=== PATIENT | female | born 1995 | race Caucasian/White ===

== ENCOUNTER 2016-09-03 11:07 | Inpatient (IN) | payer OTHER ==
[~2016-09-03] VITALS: Ht 167.6 cm; Wt 54.4 kg
[2016-09-03] MEDS ORDERED: GABA-534 PO (16:39)
[2016-09-03] MEDS ORDERED: ESCI20TA PO (16:39)
[2016-09-03] MEDS ORDERED: CEPH500C2 PO (16:39)
[2016-09-03] MEDS ORDERED: QUET50TA PO (16:39)
[2016-09-03] MEDS ORDERED: CLON0.5T23 PO (16:39)
[2016-09-03] MEDS ORDERED: NORG1TAB69 PO (16:39)
[2016-09-03] MEDS ORDERED: BUPR-51 PO (16:39)
[2016-09-03] MEDS ORDERED: LACT1TAB12 PO (16:39)
[2016-09-03 16:57] LABS: *URINE HCG, QUAL NEGATIVE (NEGATIVE)
[2016-09-03 17:15] LABS: *AMPHETAMINE, URINE POSITIVE (NEGATIVE); *BARBITURATE, URINE NEGATIVE (NEGATIVE); *CANNABINOID, URINE POSITIVE (NEGATIVE); *COCCAINE, URINE NEGATIVE (NEGATIVE); *OPIATE, URINE POSITIVE (NEGATIVE); *PHENCYCLIDINE SCREEN,URINE NEGATIVE (NEGATIVE)
[2016-09-03 17:20] VITALS: BP 126/59
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
--- NOTE | 2016-09-03 18:56 | NUR ---
CALLED [place] [employer]. WAS PUT ON HOLD FOR [address] WOOD STATES HE WILL CALL AND REPORT IT. WILL ALSO ENDORSE TO TAVERN KEEPER.
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
[2016-09-03] MEDS ORDERED: ONDANSETRON 4 MG/2 ML VIAL IM PRN (19:45)
[2016-09-03] MEDS ORDERED: LORAZEPAM 2 MG/1 ML VIAL IM PRN (19:45)
[2016-09-03] MEDS ORDERED: ACETAMINOPHEN 325 MG TABLET PO PRN (19:45)
[2016-09-03] MEDS ORDERED: MAG HYDROX/AL HYDROX/SIMETH 30 ML LIQUID UDC PO PRN (19:45)
[2016-09-03] MEDS ORDERED: ONDANSETRON ODT 4 MG TAB.RAPDIS SL PRN (19:45)
[2016-09-03] MEDS ORDERED: diphenhydrAMINE 50 MG CAPSULE PO PRN (19:45)
[2016-09-03] MEDS ORDERED: IBUPROFEN 600 MG TABLET PO PRN (19:45)
[2016-09-03] MEDS ORDERED: MIRALAX 17 GM POWD.PACK PO PRN (19:45)
[2016-09-03] MEDS ORDERED: METHOCARBAMOL 750 MG TABLET PO PRN (19:45)
[2016-09-03] MEDS ORDERED: HYDROXYZINE PAMOATE 25 MG CAPSULE PO PRN (19:45)
[2016-09-03] MEDS ORDERED: CLONIDINE HCL 0.1 MG TABLET PO PRN (19:45)
[2016-09-03] MEDS ORDERED: LORAZEPAM 1 MG TABLET PO PRN ×2 (19:45)
[2016-09-03] MEDS ORDERED: BUPRENORPHINE HCL 2 MG TAB.SUBL SL PRN (19:45)
[2016-09-03] MEDS ORDERED: LOPERAMIDE HCL 2 MG CAPSULE PO PRN ×2 (19:45)
[2016-09-03] MEDS ORDERED: DICYCLOMINE HCL 20 MG TABLET PO PRN (19:45)
[2016-09-03] MEDS ORDERED: MAGNESIUM HYDROXIDE 30 ML LIQUID UDC PO PRN (19:45)
--- NOTE | 2016-09-03 19:55 | NUR ---
AMA LEAVE: PT REFUSES CARE AND REQUESTS TO LEAVE AMA. ALL BELONGINGS AND NON-CONTROLLED MEDICATIONS RETURNED TO PT. AMA PAPERWORK SIGNED AND APPROPRIATE INFO ON OUTSIDE RESOURCES PROVIDED TO PT. PT ESCORTED OFF UNIT BY PATIENT ADVOCATENATALIE. CLIENT OFF UNIT AT 20:00. Addendum: 09/03/16 at 2254 by BERNICE BOONE RN PT STATES THAT SHE WANTS TO LEAVE BECAUSE SHE IS ANGRY THAT SHE WILL NOT RECEIVE KLONOPIN; PT DENIES HAVING A SUBSTANCE ABUSE PROBLEM AND THAT SHE INTENDS TO USE WHEN SHE LEAVES. PT EDUCATED ON RISKS AND CONSEQUENCES OF LEAVING AMA, PT VERBALIZED UNDERSTANDING BUT STILL REQUESTED TO LEAVE AMA. DR WOOD, NATALIE, JOAQUIN, AND OTHER STAFF MEMBERS SPOKE TO PT WITHOUT ANY SUCCESS. VS WNL, PT DENIES SI/HI, DR WOOD AWARE.
[2016-09-04] MEDS ORDERED: TUBERCULIN,PURIF.PROT.DERIV. 5 TU/0.1 ML TEST ID ONE (09:00)
[2016-09-04] MEDS ORDERED: GABAPENTIN 300 MG CAPSULE PO SCH (09:00)
[2016-09-04] MEDS ORDERED: MULTIVITAMINS,THERAPEUTIC TABLET PO SCH (09:00)
[2016-09-04] MEDS ORDERED: PATIENT MAY USE OWN MED- MD OK PO SCH (09:00)
== END 2016-09-03 21:51 | disposition left against medical advice (07) | DRG 894 ==
LOC: SRC 14:40
PROVIDERS: ADMIT Internal Medicine; ATTEND Internal Medicine
PROC: HZ2ZZZZ Detoxification Services for Substance Abuse Treatment (ICD-10-PCS; principal; 2016-09-03)
DX: F11.23 Opioid dependence with withdrawal (principal); T76.21XA Adult sexual abuse, suspected, initial encounter; F15.20 Other stimulant dependence, uncomplicated; F13.230 Sedative, hypnotic or anxiolytic dependence with withdrawal, uncomplicated; Z59.0 Homelessness; F31.9 Bipolar disorder, unspecified; F41.9 Anxiety disorder, unspecified; F17.210 Nicotine dependence, cigarettes, uncomplicated
CPT/HCPCS: 80307; 80324; 80346; 80349; 80361; 84703; A4663

== ENCOUNTER 2016-10-18 08:25 | Inpatient (IN) | payer OTHER ==
[~2016-10-18] VITALS: Ht 167.6 cm; Wt 49.0 kg
[~2016-10-18 08:25] MED LIST: GABA-534 PO; NORG1TAB69 PO
--- NOTE | 2016-10-19 01:00 | NUR ---
PRE-ADMISSION Pre-assessment performed in the admission office of [facility]. Pt is A&O x4 and ambulatory. She denies food or drug allergies. She does not appear intoxicated and answers all questions appropriately. Vital signs are B/P 114/80, HR 107, RR 16, O2 sat 100%, T 97.6, pain 0/10. Pt reports that she is here to be treated for heroin and methamphetamine dependence. [facility].
[2016-10-19] MEDS ORDERED: DIAZEPAM 10 MG TABLET PO PRN ×2 (02:00)
[2016-10-19] MEDS ORDERED: LORAZEPAM 2 MG/1 ML VIAL IM PRN (02:00)
[2016-10-19] MEDS ORDERED: DIAZEPAM 5 MG TABLET PO PRN (02:00)
[2016-10-19] MEDS ORDERED: LOPERAMIDE HCL 2 MG CAPSULE PO PRN ×2 (02:00)
[2016-10-19] MEDS ORDERED: METHOCARBAMOL 750 MG TABLET PO PRN (02:00)
[2016-10-19] MEDS ORDERED: ONDANSETRON ODT 4 MG TAB.RAPDIS SL PRN (02:00)
[2016-10-19] MEDS ORDERED: diphenhydrAMINE 50 MG CAPSULE PO PRN (02:00)
[2016-10-19] MEDS ORDERED: BUPRENORPHINE HCL 2 MG TAB.SUBL SL PRN (02:00)
[2016-10-19] MEDS ORDERED: ACETAMINOPHEN 325 MG TABLET PO PRN (02:00)
[2016-10-19] MEDS ORDERED: DICYCLOMINE HCL 20 MG TABLET PO PRN (02:00)
[2016-10-19] MEDS ORDERED: MAGNESIUM HYDROXIDE 30 ML LIQUID UDC PO PRN (02:00)
[2016-10-19] MEDS ORDERED: MAG HYDROX/AL HYDROX/SIMETH 30 ML LIQUID UDC PO PRN (02:00)
[2016-10-19] MEDS ORDERED: CLONIDINE HCL 0.1 MG TABLET PO PRN (02:00)
[2016-10-19] MEDS ORDERED: PROMETHAZINE HCL 25 MG TABLET PO PRN (02:00)
[2016-10-19] MEDS ORDERED: IBUPROFEN 400 MG TABLET PO PRN (02:00)
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
[2016-10-19 02:24] LABS: *URINE HCG, QUAL NEGATIVE (NEGATIVE)
[2016-10-19 02:36] LABS: *AMPHETAMINE, URINE POSITIVE (NEGATIVE); *BARBITURATE, URINE NEGATIVE (NEGATIVE); *CANNABINOID, URINE NEGATIVE (NEGATIVE); *COCCAINE, URINE NEGATIVE (NEGATIVE); *OPIATE, URINE POSITIVE (NEGATIVE); *PHENCYCLIDINE SCREEN,URINE NEGATIVE (NEGATIVE)
[2016-10-19 04:00] VITALS: BP 101/45
--- NOTE | 2016-10-19 07:15 | NUR ---
END OF SHIFT Report provided to day shift nurse. Pt is lying in bed resting. She is a 20 yo female admitted to [facility] today at 0110 for bzd and opiate dependence. No PRN medications administered. Last COWS 1 and CIWA 2. She drank 500mL and slept for 4 hours.
[2016-10-19] MEDS ORDERED: SERT25TA PO (07:23)
[2016-10-19] MEDS ORDERED: ESCI10TA PO (07:23)
[2016-10-19] MEDS ORDERED: ALPR2TAB7 PO (07:23)
[2016-10-19 07:27] LABS: BASOPHILS # (AUTO) 0.1 K/uL (0.0-8.0); BASOPHILS % (AUTO) 3.2 % (0.0-2.0); EOSINOPHILS # (AUTO) 0.1 K/uL (0.0-0.7); EOSINOPHILS % (AUTO) 1.4 % (0.0-7.0); HEMOGLOBIN 13.1 G/DL (12.0-16.0); LYMPHOCYTES # (AUTO) 1.9 K/UL (0.8-4.8); LYMPHOCYTES % (AUTO) 46.6 % (20.5-74.5); MEAN CORPUSCULAR HEMOGLOBIN 28.9 UUG (27.0-31.0); MEAN CORPUSCULAR HGB CONC 34 g/dL (32.0-37.0); MEAN CORPUSCULAR VOLUME 86.2 FL (81.0-99.0); MONOCYTES # (AUTO) 0.4 K/UL (0.1-1.30); MONOCYTES % (AUTO) 8.8 % (0-11); NEUTROPHILS # (AUTO) 1.7 K/UL (1.8-8.9); PLATELET COUNT (AUTO) 223 K/UL (150-450); RED BLOOD CELL COUNT(AUTO) 4.52 MIL/UL (4.2-5.4); WHITE BLOOD COUNT (AUTO) 4.2 K/UL (4.0-11.2)
[2016-10-19 07:42] LABS: ETHANOL < 3 MG/DL (0-0)
[2016-10-19 07:51] LABS: ALANINE AMINOTRANSFERASE 22 U/L (14-59); ALBUMIN 3.2 g/dL (3.4-5.0); ALKALINE PHOSPHATASE 85 U/L (50-136); AMYLASE 33 U/L (25-115); ASPARTATE AMINOTRANSFERASE 23 U/L (15-37); BILIRUBIN,TOTAL 0.2 mg/dL (0.2-1.0); CALCIUM 8.6 mg/dL (8.5-10.1); CARBON DIOXIDE 29 mmol/L (21-32); CHLORIDE 104 mmol/L (98-107); CREATININE 0.7 mg/dL (0.6-1.3); GFR 107 mL/min (>60); GLUCOSE 92 mg/dL (74-106); LIPASE 72 U/L (73-393); POTASSIUM 4.2 mmol/L (3.5-5.1); SODIUM SERUM 138 mmol/L (136-145); UREA NITROGEN, BLOOD 10 mg/dL (7-18)
[2016-10-19 07:58] LABS: HIV-1 p24 ANTIGEN NON REACTIVE (NONREACTIVE); HIV-1/2 ANTIBODY NON REACTIVE (NONREACTIVE)
[2016-10-19 08:00] VITALS: BP 117/77
[2016-10-19 08:00] LABS: THYROID STIMULATING HORMONE 0.489 mIU/mL (0.358-3.740)
--- NOTE | 2016-10-19 08:00 | NUR ---
START OF SHIFT NOTE Received pt this Am AOx4. Patient presents very fatigued and tired. Patient states her "legs are hurting really bad." No PRNs given during the night per night nurse. No taper initiated yet. COWS 4 CIWA 5 at 0800. Encouraged increase in fluid intake to facilitate detox. Patient currently sleeping in bed with bed locked and in lowest position and call virk within reach. Will provide safe and supportive environment. Will continue to monitor.
[2016-10-19] MEDS: MULTIVITAMINS,THERAPEUTIC TABLET PO SCH (09:43)
--- NOTE | 2016-10-19 09:50 | NUR ---
PRN MEDICATIONS PRN Robaxin given for leg restlessness and leg pain 11/07. Will reassess.
--- NOTE | 2016-10-19 10:20 | NUR ---
PRN REASSESSMENT Patient sleeping calmly in bed with RR even and unlabored. Bed locked and in lowest position and call virk within reach. Will continue to monitor.
[2016-10-19 12:00] VITALS: BP 108/69
[2016-10-19] MEDS: HYDROXYZINE PAMOATE 25 MG CAPSULE PO PRN (12:20)
--- NOTE | 2016-10-19 12:21 | NUR ---
PRN MEDS PRN Vistaril given for c/o anxiety. Vital signs stable. Will reassess
--- NOTE | 2016-10-19 13:00 | NUR ---
PRN REASSESSMENT Patient states she feels a little less anxious. Patient eating lunch in bed calmly. Will monitor.
[2016-10-19] MEDS: LORAZEPAM 1 MG TABLET PO SCH ×3 (13:01→21:21)
[2016-10-19] MEDS: BUPRENORPHINE HCL 2 MG TAB.SUBL SL SCH ×3 (13:02→21:21)
[2016-10-19] MEDS: GABAPENTIN 300 MG CAPSULE PO SCH ×2 (14:09→21:21)
[2016-10-19 16:00] VITALS: BP 127/66
[2016-10-19] MEDS ORDERED: GABAPENTIN 300 MG CAPSULE PO SCH (17:00)
[2016-10-19] MEDS: ESCITALOPRAM OXALATE 10 MG TABLET PO SCH (17:35)
--- NOTE | 2016-10-19 18:38 | NUR ---
END OF SHIFT NOTE Patient started on 5 day Ativan/5 day Subutex taper and tolerating well. Patient presents with flat affect and congruent mood. She states they have made her "feel better already." Patient given PRN Robaxin and Vistaril with effectiveness. Patient slept most of shift. Last COWS 9 CIWA 7. Patient currently resting in room with bed locked and in lowest position and call virk within reach. All needs have been met. Safety measures in place. Will pass shift report to oncoming nurse.
[2016-10-19 20:00] VITALS: BP 116/72
--- NOTE | 2016-10-19 20:00 | NUR ---
START OF SHIFT Received report from day shift nurse. Pt attended a group meeting and returned to her room after. She is a 20 yo female admitted to [facility] on 10/19 for BZD and Opiate dependence. She has a PMH of PNA x4, bronchitis, UTIs, depression, anxiety, and bipolar. On admission she admitted to using Xanax 6mg per day, heroin 1 gram per day, and methamphetamine 0.5grams 3x/week. She started a 5 day Ativan and 5 day Subutex taper today. She presents with dilated pupils chills, and mild tremors. Tapers due tonight. Fall precautions in place. Bed is down with call light in reach. Addendum: 10/20/16 at 0139 by RANDI ARCINIEGA RN Pt is A&O x4 and ambulatory.
[2016-10-19 22:50] VITALS: BP 129/82
--- NOTE | 2016-10-19 23:18 | NUR ---
PRN Valium and Benadryl administration Pt reports that she is seeing objects in her room moving. She explains that a towel hanging, light switches, and the door handle appear to be moving. She is aware that the objects are not really moving. Pt has moderately dilated pupils. She is A&O x4. B/P 129/82 and HR 115. notified with orders received to administer PRN Valium. PRN Benadryl also administered. Addendum: 10/20/16 at 0507 by RANDI ARCINIEGA RN SKYLAR 8 and KIM 9.
[2016-10-20 00:30] VITALS: BP 123/72
--- NOTE | 2016-10-20 00:32 | NUR ---
PRN Valium and Benadryl reassessment PRN Valium and Benadryl somewhat effective. Hallucinations continue to be the same and have not gotten worse. B/P 123/72 and HR 100. COWS 6 and CIWA 9. Pt has not been able to sleep.
[2016-10-20] MEDS: HYDROXYZINE PAMOATE 25 MG CAPSULE PO PRN (01:45)
--- NOTE | 2016-10-20 01:45 | NUR ---
PRN Clonidine and Vistaril Pt reports that hallucinations have become slightly worse and she continues to feel anxious. She sees objects in her room moving more frequently. She has tremors and dilated pupils. COWS 6 and CIWA 11. Notified MD. Orders received to continue dosing per [facility] protocol. PRN Clonidine and Vistaril administered. Last B/P 123/72 and HR 100.
--- NOTE | 2016-10-20 02:45 | NUR ---
PRN Clonidine and Vistaril reassessment PRN Clonidine and Vistaril effective. Pt is lying comfortably in bed resting with eyes closed. Respirations even and unlabored. Unable to obtain COWS and CIWA as pt. is sleeping. Safety measures in place.
[2016-10-20 04:00] VITALS: BP 107/60
--- NOTE | 2016-10-20 04:00 | NUR ---
0400 COWS and CIWA deferred COWS and CIWA ordered Q4H while awake. Vitals obtained.
--- NOTE | 2016-10-20 07:15 | NUR ---
END OF SHIFT Report provided to day shift nurse. Pt is lying in bed resting. She is a 20 yo female admitted to [facility] on 10/19 for BZD and Opiate dependence. She has a PMH of PNA x4, bronchitis, UTIs, depression, anxiety, and bipolar. On admission she admitted to using Xanax 6mg per day, heroin 1 gram per day, and methamphetamine 0.5grams 3x/week. She started a 5 day Ativan and 5 day Subutex taper on 10/19. Pt experienced hallucinations last night and she was unable to sleep. It appeared as thought objects in her room were moving. She remained A&O x4. PRN Valium, Benadryl, Clonidine, and Vistaril administered. Pt was eventually able to fall asleep. Last COWS 6 and CIWA 11 before last medications administered. She drank 1446mL and slept for 3 hours. Fall precautions in place. Bed is down with call light in reach.
--- NOTE | 2016-10-20 07:50 | NUR ---
START OF SHIFT: RECEIVED PT ASLEEP IN BED. BED LOCKED AND LOW. RESPIRATIONS EVEN AND UNLABORED. CALL LARSON IN REACH. WILL CONTINUE TO MONITOR.
[2016-10-20 08:00] VITALS: BP 111/67
[2016-10-20 08:06] LABS: HEPATITIS B CORE AB, IgM Negative (Negative); HEPATITIS B SURFACE AG Negative (Negative)
[2016-10-20] MEDS: BUPRENORPHINE HCL 2 MG TAB.SUBL SL SCH ×3 (09:00→21:00)
[2016-10-20] MEDS ORDERED: TUBERCULIN,PURIF.PROT.DERIV. 5 TU/0.1 ML TEST ID ONE ×2 (09:00→15:00)
[2016-10-20] MEDS: GABAPENTIN 300 MG CAPSULE PO SCH ×3 (09:00→21:28)
[2016-10-20] MEDS: ESCITALOPRAM OXALATE 10 MG TABLET PO SCH (09:00)
[2016-10-20] MEDS: MULTIVITAMINS,THERAPEUTIC TABLET PO SCH (09:00)
[2016-10-20] MEDS: LORAZEPAM 1 MG TABLET PO SCH ×3 (09:00→21:28)
--- NOTE | 2016-10-20 10:05 | NUR ---
PT CONTINUES TO SLEEP AND WAS UP MOST OF THE NIGHT PER WELLNESS COACH REPORT. WILL ALLOW PT TO REST. 0900 MEDS HELD. COWS AND CIWA DEFERRED. VSS. WILL CONTINUE TO PROVIDE SAFE AND SUPPORTIVE ENVIRONMENT.
[2016-10-20 12:00] VITALS: BP 110/72
--- NOTE | 2016-10-20 14:35 | NUR ---
PT IS A/O X 4. SHE DENIES HALLUCINATIONS. SHE REPORTS SOME ANXIETY AND RESTLESSNESS. PPD PLANTED TO LFA. ATIVAN/SUBUTEX TAPER IN PROGRESS. SHE STATES SHE FEELS ANXIETY AND RESTLESSNESS. SHE IS REFUSING SUBUTEX AND STATES SHE FEELS MORE S/S OF W/D FROM THE BENZOS. EDUCATED PT ON POTENTIAL CONSEQUENCES OF REFUSING DETOX MEDS. PT EXPRESSED UNDERSTANDING. CIWA 5 COWS 2.ENCOURAGED INCREASED FLUIDS AND ENCOURAGED HER TO STAY AWAKE FOR THE REMAINDER OF THE DAY SO SHE CAN SLEEP TONIGHT. WILL CONTINUE TO MONITOR AND PROVIDE SUPPORT.
[2016-10-20 16:00] VITALS: BP 115/67
--- NOTE | 2016-10-20 18:39 | NUR ---
END OF SHIFT : PT CONTINUES ON ATIVAN /SUBUTEX TAPER. PT HAS BEEN SLEEPING FOR MOST OF SHIFT. SHE AWOKE FOR 1500 MEDS AND ONLY WANTED ATIVAN AND GABAPENTIN. SHE REFUSED SUBUTEX AND STATED SHE DID NOT FEEL LIKE SHE NEEDED THE SUBUTEX AND HER W/D S/S WERE FROM BZOS. LAST CIWA 3 COWS 2. PT PRESENTS WITH BLUNTED AFFECT AND DEPRESSED MOOD. SHE DENIES S/I AND H/I. WILL PASS SHIFT REPORT TO ONCOMING NIGHT NURSE.
--- NOTE | 2016-10-20 19:30 | NUR ---
Start of Shift Note: Report received from day shift nurse. Pt is a 20F, admitted for Opiate and Benzo Dependence. Pt was in the room sleeping upon the start of shift. Pt is AOx4 without s/s of acute distress noted. Pt is full code, on regular diet, and on fall precautions. Pt noted with NKA. Pt has hx of PNA, Bronchitis, UTI, Depression, Anxiety, and Bipolar disorder. Pt currently on 5-day Ativan and 5-day Subutex taper to manage withdrawal symptoms. Per day shift nurse, last COWS was 2 and last CIWA was 3 and 1600. Bed in lowest position. Side rails up x2. Call light functioning and within reach. All needs attended and met. Will continue to monitor.
[2016-10-20 20:00] VITALS: BP 122/77
[2016-10-21] VITALS: BP 121/81
[2016-10-21 04:00] VITALS: BP 113/80
--- NOTE | 2016-10-21 07:13 | NUR ---
End of Shift Note: Pt is 20F, admitted for Opiate and Benzo Dependence. Pt is AOx4 without s/s of acute distress. Pt is full code, on regular diet, and on fall precautions. Pt noted with NKA. Pt has hx of PNA, Bronchitis, UTI, Depression, Anxiety, and Bipolar disorder. Pt currently on 5-day Ativan and 5-day Subutex taper to manage withdrawal symptoms. Pt slept for 9 hours. Respirations even and unlabored. Last COWS score was 1 and last CIWA score was 2. No PRN medications given during the shift. No N/V noted during the shift. Bed in lowest position. Side rails up x2. Call light functioning and within reach. All needs attended and met. Will endorse to day shift nurse.
[2016-10-21 08:00] VITALS: BP 115/75
[2016-10-21] MEDS: GABAPENTIN 300 MG CAPSULE PO SCH ×2 (08:33→14:32)
[2016-10-21] MEDS: LORAZEPAM 1 MG TABLET PO SCH ×2 (08:33→14:32)
[2016-10-21] MEDS: MULTIVITAMINS,THERAPEUTIC TABLET PO SCH (08:34)
[2016-10-21] MEDS: ESCITALOPRAM OXALATE 10 MG TABLET PO SCH (08:34)
[2016-10-21] MEDS ORDERED: BUPRENORPHINE HCL 2 MG TAB.SUBL SL SCH ×2 (09:00→15:00)
--- NOTE | 2016-10-21 10:00 | NUR ---
START OF SHIFT Received report from shiftman nurse. Received patient laying in bed. Patient is 20 year old female admitted for medically supervised withdrawal from heroin and alprazolam. Patient is full code with NKA. On fall precautions. On assessment this AM: CIWA: 0 AND COWS: 1. On 5 day Ativan AND 5 day subutex taper. Patient denies anxiety, tremors, nausea and sweating, Body ache, SOB, or chest pain. Refused subutex and states she does not need it anymore, was notified. Patient was encouraged to attend group meetings today. Will continue to monitor patient.
[2016-10-21 12:00] VITALS: BP 110/73
--- NOTE | 2016-10-21 14:34 | NUR ---
MED REFUSAL Patient refused her scheduled Subutex and pneumococcal vaccination. Md already aware about patient refusing subutex.
[2016-10-21] MEDS ORDERED: PNEUMOCOCCAL 23-VAL P-SAC VAC 0.5 ML VIAL IM ONE (15:00)
--- NOTE | 2016-10-21 15:02 | NUR ---
AMA NOTE Patient left AMA, refused to comply with treatment. Patient was educated about the risks and consequences of leaving AMA, pt. verbalized understanding but was adamant about leaving. Multiple staff members including patient advocates, nurses attempted to reason with patient without any success. Last VS WNL, skin intact. Patient denied any suicidal or homicidal ideations. Patient's MD was notified and aware. Patient was given a list of community resources, AMA forms explained and signed by ptient. All belongings returned to patient. Patient has no home meds. Patient left at 5:02pm.
[2016-10-22] MEDS ORDERED: LORAZEPAM 1 MG TABLET PO SCH (09:00)
[2016-10-22] MEDS ORDERED: ESCITALOPRAM OXALATE 10 MG TABLET PO SCH (09:00)
[2016-10-22] MEDS ORDERED: BUPRENORPHINE HCL 2 MG TAB.SUBL SL SCH (09:00)
[2016-10-23] MEDS ORDERED: LORAZEPAM 1 MG TABLET PO SCH (09:00)
[2016-10-23] MEDS ORDERED: BUPRENORPHINE HCL 2 MG TAB.SUBL SL SCH (09:00)
== END 2016-10-21 17:02 | disposition left against medical advice (07) | DRG 894 ==
LOC: SRC 10-19 00:25
PROVIDERS: ADMIT Internal Medicine; ATTEND Internal Medicine
PROC: HZ2ZZZZ Detoxification Services for Substance Abuse Treatment (ICD-10-PCS; principal; 2016-10-19)
PROC: HZ31ZZZ Individual Counseling for Substance Abuse Treatment, Behavioral (ICD-10-PCS; 2016-10-21)
DX: F11.23 Opioid dependence with withdrawal (principal); F33.1 Major depressive disorder, recurrent, moderate; F13.20 Sedative, hypnotic or anxiolytic dependence, uncomplicated; F15.20 Other stimulant dependence, uncomplicated; Z59.0 Homelessness; Z79.899 Other long term (current) drug therapy; F17.210 Nicotine dependence, cigarettes, uncomplicated
CPT/HCPCS: 36415; 80307; 80324; 80361; 83690; 83735; 84443; 84703; 85025; 86580; 86705; 87340; 87806; 90732; 93005; G6040-TC; Q0163